=== PATIENT | female | born 1965 | race Hispanic/Latino ===

== ENCOUNTER 2017-12-22 03:06 | Emergency (ER) | payer OTHER ==
[2017-12-22 03:18] VITALS: BMI 27.3
--- NOTE | 2017-12-22 03:34 | ED PDOC ---
Arrival/HPI - General Chief Complaint: Shortness Of Breath Time Seen by Provider: 12/22/17 03:07 Historian: Patient - History of Present Illness Narrative History of Present Illness (Text): 12/22/17 03:31 Roberta Macias is a 52 year old female, with no significant past medical history, presents to the emergency department complaining of shortness of breath since last night. Patient was at baseline earlier. Patient states "she feels weird" but could not elaborate further. Patient denies any fever, chills, chest pain, nausea, vomiting, diarrhea, back pain, neck pain, headache, dizziness, or any other complaints. Time/Duration: Other (last night) Symptom Onset: Gradual Symptom Course: Unchanged Activities at Onset: Light Context: Home Past Medical History - Provider Review Nursing Documentation Reviewed: Yes - Infectious Disease Hx of Infectious Diseases: None - Psychiatric Hx Substance Use: No Family/Social History - Physician Review Nursing Documentation Reviewed: Yes Family/Social History: Unknown Family HX Smoking Status: Never Smoked Hx Alcohol Use: No Hx Substance Use: No Allergies/Home Meds Allergies/Adverse Reactions: Allergies No Known Allergies Allergy (Verified 12/22/17 03:18) Home Medications: Home Meds Medication Instructions Recorded Confirmed No Known Home Med 12/22/17 12/22/17 Review of Systems - Physician Review All systems were reviewed & negative as marked: Yes - Review of Systems Constitutional: Normal Eyes: Normal ENT: Normal Respiratory: SOB Cardiovascular: Normal Gastrointestinal: Normal Genitourinary Female: Normal Musculoskeletal: Normal Skin: Normal Neurological: Normal Endocrine: Normal Hemo/Lymphatic: Normal Psychiatric: Normal Physical Exam Vital Signs Temp Pulse Resp BP Pulse Ox 12/22/17 05:15 100 12/22/17 05:00 72 18 120/82 100 12/22/17 03:35 18 100 12/22/17 03:30 98.4 F 75 17 122/89 100 - Systems Exam Head: Present: Atraumatic, Normocephalic Pupils: Present: PERRL Extroacular Muscles: Present: EOMI Conjunctiva: Present: Normal Mouth: Present: Moist Mucous Membranes Neck: Present: Normal Range of Motion Respiratory/Chest: Present: Clear to Auscultation, Good Air Exchange. No: Respiratory Distress, Accessory Muscle Use Cardiovascular: Present: Regular Rate and Rhythm, Normal S1, S2. No: Murmurs Abdomen: Present: Normal Bowel Sounds. No: Tenderness, Distention, Peritoneal Signs Back: Present: Normal Inspection Upper Extremity: Present: Normal Inspection. No: Cyanosis, Edema Lower Extremity: Present: Normal Inspection. No: Edema Neurological: Present: GCS=15, CN II-XII Intact, Speech Normal Skin: Present: Warm, Dry, Normal Color. No: Rashes Psychiatric: Present: Alert, Oriented x 3, Normal Insight, Normal Concentration Medical Decision Making ED Course and Treatment: 12/22/17 03:31 Impression: 52 year old female presents to the emergency department complaining fo shortness of breath since last night. consider cardiac, pe, infectious, anemia, etiology Plan: -- EKG -- Cardiac Enzymes -- Labs -- D-Dimer -- Magnesium -- Chest X-ray -- Prothrombin Time -- HCG, Qualitative Urine Stat -- Urinalysis -- Reassess and disposition Progress Notes: 12/22/17 04:24 Patient re-assessed, is smiling and in no acute distress. 12/22/17 05:06 pt reassesed sat 99% ra, speaking full sentences lungs cta. cxr neg as read by me. labs unremakrable. pt states she feels well to go home, and does not wish to provide urine in er. advise close outpt fu and retrun precautions - Lab Interpretations Lab Results: 12/22/17 03:40 12/22/17 03:40 Lab Results 12/22/17 03:40: Sodium 142, Potassium 3.8, Chloride 109 H, Carbon Dioxide 26, Anion Gap 11, BUN 21, Creatinine 0.7, Est GFR ( Amer) > 60, Est GFR (Non- Af Amer) > 60, Random Glucose 107, Calcium 9.2, Magnesium 2.2, Total Bilirubin 0.2, AST 25, ALT 29, Alkaline Phosphatase 66, Lactate Dehydrogenase 426, Total Creatine Kinase 58, Troponin I < 0.01, NT-Pro-B Natriuret Pep 90.4, Total Protein 6.8, Albumin 3.9, Globulin 2.9, Albumin/Globulin Ratio 1.3 12/22/17 03:40: PT 10.3, INR 0.91 L, APTT 31.7, D-Dimer, Quantitative < 200 12/22/17 03:40: WBC 5.0, RBC 4.10, Hgb 12.4, Hct 38.0, MCV 92.7, MCH 30.2, MCHC 32.6, RDW 13.0, Plt Count 156, MPV 10.1, Gran % 40.5 L, Lymph % (Auto) 44.4 H, [place] % (Auto) 11.5 H, Eos % (Auto) 3.4, Baso % (Auto) 0.2, Gran # 2.01, Lymph # (Auto) 2.2, [place] # (Auto) 0.6, Eos # (Auto) 0.2, Baso # (Auto) 0.01 - RAD Interpretation Radiology Orders: 12/22/17 04:38 CXR [CHEST TWO VIEWS (PA/LAT)] [RAD] Stat - Scribe Statement The provider has reviewed the documentation as recorded by the Scribe Bertha Carter All medical record entries made by the Scribe were at my direction and personally dictated by me. I have reviewed the chart and agree that the record accurately reflects my personal performance of the history, physical exam, medical decision making, and the department course for this patient. I have also personally directed, reviewed, and agree with the discharge instructions and disposition. Disposition/Present on Arrival - Present on Arrival Any Indicators Present on Arrival: No History of DVT/PE: No History of Uncontrolled Diabetes: No Urinary Catheter: No History of Decub. Ulcer: No History Surgical Site Infection Following: None - Disposition Have Diagnosis and Disposition been Completed?: Yes Diagnosis: Acute dyspnea Disposition: HOME/ ROUTINE Disposition Time: 04:00 Condition: GOOD Discharge Instructions (ExitCare): Shortness of Breath (Dyspnea) (DC) Additional Instructions: please follow up with your doctor. return to er with worsening symtoms or concerns. Referrals: Anibal Serrano MD [Primary Care Provider] - Follow up with primary Forms: [employer] ([place]ien)
[2017-12-22 03:58] LABS: BASO # 0.01 K/mm3 (0.0-2.0); BASO % 0.2 % (0.0-3.0); EOS # 0.2 (0.0-0.7); EOS % 3.4 % (1.5-5.0); GRAN # 2.01 (1.4-6.5); GRAN % 40.5 % (50.0-68.0); HEMOGLOBIN 12.4 g/dL (12.0-16.0); LYMPH # 2.2 (1.2-3.4); LYMPH % 44.4 % (22.0-35.0); MEAN CELL VOLUME 92.7 fl (80.0-105.0); MEAN CORPUSCULAR HEMOGLOBIN 30.2 pg (25.0-35.0); MEAN CORPUSCULAR HGB CONC 32.6 g/dl (31.0-37.0); MEAN PLATELET VOLUME 10.1 fl (7.0-11.0); MONO # 0.6 (0.1-0.6); MONO % 11.5 % (1.0-6.0); RBC 4.1 10^6/uL (3.5-6.1)
[2017-12-22 04:01] LABS: ALB/GLOB RATIO 1.3 (1.1-1.8); ALBUMIN 3.9 g/dL (3.0-4.8); ALT/SGPT 29 U/L (7-56); AST/SGOT 25 U/L (14-36); BLOOD UREA NITROGEN 21 mg/dL (7-21); CALCIUM 9.2 mg/dL (8.4-10.5); GFR AFRICAN-AMERICAN > 60; GFR NON-AFRICAN AMERICAN > 60
[2017-12-22 04:08] LABS: B-TYPE NATRIURETIC PEPTIDE 90.4 pg/mL (0-450)
[2017-12-22 04:14] LABS: TROPONIN I < 0.01 ng/mL
[2017-12-22 04:19] LABS: D DIMER < 200 ng/mL (0-243); INR 0.91 (0.93-1.08); PARTIAL THROMBOPLASTIN TIME 31.7 Seconds (25.1-36.5); PROTHROMBIN TIME 10.3 SECONDS (9.4-12.5)
[2017-12-22 05:44] VITALS: BP 120/82; PULSE 72; RESP 18; O2SAT 100
[2017-12-22 05:45] VITALS: TEMP 98.4
--- NOTE | 2017-12-22 19:34 | CARD ---
APPROVED REPORT EKG Measurement Heart [id number] <Conclusion> Sinus rhythm with marked sinus arrhythmia Otherwise normal ECG
== END 2017-12-22 05:15 | disposition home or self-care (01) ==
LOC: ED 03:06
DX: R06.00 Dyspnea, unspecified (principal)